=== PATIENT | male | born 1935 | race African-American/Black ===

== ENCOUNTER 2018-09-29 21:25 | Inpatient (IN) | payer MEDICARE, BC ==
[~2018-09-29] VITALS: Ht 182.9 cm; Wt 83.9 kg
[~2018-09-29 21:25] MED LIST: FEBU40TA PO; GABA-290 PO; OLME1TAB44 PO; SIMV40TA5 PO
[2018-09-30] VITALS: BP 128/66
[2018-09-30 02:51] LABS: BASOPHILS % 0.5 % (0.0-2.0); EOSINOPHILS % 0.9 % (0.0-5.0); HEMATOCRIT. 37.4 % (42.0-52.0); HEMOGLOBIN. 12.4 g/dL (14.0-18.0); LYMPHOCYTES % 9.7 % (20.0-50.0); MEAN CORPUSCULAR VOLUME 93.9 fL (80.0-94.0); NEUTROPHILS % 81.9 % (40.0-76.0); PLATELET 191 x1000/uL (130-400); RED BLOOD CELL COUNT 3.98 mill/uL (4.7-6.1)
[2018-09-30 02:53] LABS: CHLORIDE 107 mEq/L (98-107)
[2018-09-30 02:56] LABS: INR 1.1; PARTIAL THROMBOPLASTIN TIME 30.6 sec (23.4-31.0)
[2018-09-30 04:17] LABS: CLARITY URINE CLEAR (CLEAR); COLOR URINE YELLOW (YELLOW); KETONES URINE NEGATIVE (NEGATIVE); LEUKOCYTE ESTERASE URINE 2+ (NEGATIVE); NITRITE URINE NEGATIVE (NEGATIVE); OCCULT BLOOD URINE 2+ (NEGATIVE); PH URINE 5.5 (4.5-8.0); PROTEIN URINE NEGATIVE (NEGATIVE); SPECIFIC GRAVITY URINE 1.014 (1.005-1.030); UROBILINOGEN URINE 0.2 E.U./dL (0.2-1.0)
[2018-09-30 08:00] VITALS: BP 130/63
[2018-09-30] MEDS ORDERED: MORPHINE SULFATE 4 MG/ML CPJ (NOT FOR IM USE) IV PRN (09:00)
[2018-09-30] MEDS ORDERED: MORPHINE SULFATE 4 MG/ML CPJ (NOT FOR IM USE) IV NR (09:00)
[2018-09-30] MEDS ORDERED: DEXT 5% IV SCH (10:30)
[2018-09-30] MEDS ORDERED: WATER IV SCH (10:30)
[2018-09-30] MEDS ORDERED: POTASSIUM CHLORIDE IV SCH (10:30)
[2018-09-30] MEDS ORDERED: MAGNESIUM HYDROXIDE 400MG/5ML 30ML UDC PO PRN ×2 (10:45→20:30)
[2018-09-30] MEDS ORDERED: ZOLPIDEM TARTRATE 5MG TABLET PO PRN (10:45)
[2018-09-30] MEDS ORDERED: ACETAMINOPHEN 325MG TABLET PO PRN ×2 (10:45→20:30)
[2018-09-30] MEDS ORDERED: POTASSIUM CHLORIDE 20MEQ TABLET SR PO NR (11:00)
[2018-09-30 11:32] VITALS: BP 114/60
[2018-09-30] MEDS ORDERED: DEXT 5%/0.45% NACL KCL 20MEQ/L 1,000 ML IV SCH (12:00)
[2018-09-30 16:00] VITALS: BP 154/77
[2018-09-30] MEDS ORDERED: BUPIVACAINE/EPINEPH/PF 0.25%/0.0005 10ML ONE ×2 (16:33→17:10)
[2018-09-30] MEDS ORDERED: VANCOMYCIN HCL 500 MG/VIAL ONE (16:34)
[2018-09-30] MEDS ORDERED: BACITRACIN 15GM TUBE TOP ONE (16:34)
[2018-09-30] MEDS ORDERED: BACITRACIN 50,000 UNITS/VIAL ONE (16:35)
[2018-09-30] MEDS ORDERED: NORMAL SALINE 0.9% 10 ML SYR ONE (16:35)
[2018-09-30] MEDS ORDERED: FENTANYL CITRATE/PF 50MCG/ML 2ML VIAL ONE (18:08)
[2018-09-30] MEDS ORDERED: PROPOFOL 200MG/20ML VIAL IV ONE (18:08)
[2018-09-30] MEDS ORDERED: MIDAZOLAM HCL 2 MG/2 ML VIAL ONE (18:09)
[2018-09-30] MEDS ORDERED: LABETALOL 5MG/ML SYR 20 MG/4 ML SYRINGE IV PRN (18:45)
[2018-09-30] MEDS ORDERED: HYDROMORPHONE HCL/PF 2MG/ML CPJ IV PRN (18:45)
[2018-09-30] MEDS ORDERED: ONDANSETRON HCL 4MG/2ML INJ IV PRN ×2 (18:45→20:30)
[2018-09-30] MEDS ORDERED: MEPERIDINE HCL/PF 25MG/ML CPJ IV PRN (18:45)
[2018-09-30] MEDS ORDERED: ONDANSETRON HCL 4MG/2ML INJ ONE (18:48)
[2018-09-30] MEDS ORDERED: DEXAMETHASONE 4MG/ML 1ML VIAL ONE (18:48)
[2018-09-30] MEDS ORDERED: MORPHINE SULFATE/PF 1MG/ML 10ML AMP ONE (18:53)
[2018-09-30] MEDS ORDERED: HYDROMORPHONE HCL/PF 2MG/ML (OR) ONE (19:12)
[2018-09-30] MEDS ORDERED: ASPI-1160 PO (19:47)
[2018-09-30] MEDS ORDERED: ALPH100C PO (19:47)
[2018-09-30] MEDS ORDERED: HYDROCODONE/ACETAMINOPHEN 10/325MG TABLET PO PRN ×2 (20:30)
[2018-09-30] MEDS ORDERED: HYDROMORPHONE PCA 10MG/50ML IV PRN (21:00)
[2018-09-30] MEDS ORDERED: NALOXONE INJ IV PRN (21:00)
[2018-09-30] MEDS ORDERED: ONDANSETRON INJ IV PRN (21:00)
[2018-10-01] VITALS (7 sets, daily range): BP systolic 105–138; BP diastolic 51–75
[2018-10-01] MEDS: CEFAZOLIN 2,000 MG in DEXT 5% WATER 100 ML IV SCH ×2 (02:25→09:17)
[2018-10-01 06:45] LABS: HEMOGLOBIN. 12.1 g/dL (14.0-18.0); MEAN CORPUSCULAR HEMOGLOBIN 31.7 pg (28.0-32.0); MEAN CORPUSCULAR VOLUME 94.1 fL (80.0-94.0); PLATELET 159 x1000/uL (130-400); RED BLOOD CELL COUNT 3.82 mill/uL (4.7-6.1)
[2018-10-01] MEDS: AMLODIPINE 5MG TABLET PO SCH (09:00)
[2018-10-01] MEDS ORDERED: WATER IV SCH ×2 (09:00→11:00)
[2018-10-01] MEDS ORDERED: KCL IV SCH ×2 (09:00→11:00)
[2018-10-01] MEDS ORDERED: DEXT 5% IV SCH ×2 (09:00→11:00)
[2018-10-01] MEDS: DOCUSATE SODIUM 100MG CAPSULE PO SCH (09:15)
[2018-10-01] MEDS: ENOXAPARIN 40MG/0.4ML SYR SUBCUT SCH (09:17)
[2018-10-01] MEDS ORDERED: MAGNESIUM HYDROXIDE 400MG/5ML 30ML UDC PO PRN (10:00)
[2018-10-01 16:42] LABS: PLATELET ESTIMATE NORMAL
[2018-10-02 04:00] VITALS: BP 139/74
[2018-10-02 08:00] VITALS: BP 139/76
[2018-10-02] MEDS: ENOXAPARIN 40MG/0.4ML SYR SUBCUT SCH (09:08)
[2018-10-02] MEDS: DOCUSATE SODIUM 100MG CAPSULE PO SCH (09:08)
[2018-10-02] MEDS: AMLODIPINE 5MG TABLET PO SCH (09:08)
[2018-10-02 12:00] VITALS: BP 116/64
[2018-10-02 15:46] VITALS: BP 120/58
[2018-10-02 17:28] VITALS: BP 120/58
== END 2018-10-02 17:57 | DRG 482 ==
LOC: ER 21:25 → 6EST 09-30 01:41 → ENRESERV 09-30 04:36
PROVIDERS: ADMIT Specialist; ATTEND Specialist
PROC: 0QH706Z Insertion of Intramedullary Internal Fixation Device into Left Upper Femur, Open Approach (ICD-10-PCS; principal; 2018-09-30)
DX: S72.142A Displaced intertrochanteric fracture of left femur, initial encounter for closed fracture (principal); I10 Essential (primary) hypertension; E78.5 Hyperlipidemia, unspecified; G62.0 Drug-induced polyneuropathy; R73.02 Impaired glucose tolerance (oral); E87.6 Hypokalemia; T45.1X5A Adverse effect of antineoplastic and immunosuppressive drugs, initial encounter; W01.0XXA Fall on same level from slipping, tripping and stumbling without subsequent striking against object, initial encounter; Y93.89 Activity, other specified; Y99.8 Other external cause status; Y92.89 Other specified places as the place of occurrence of the external cause; Z85.46 Personal history of malignant neoplasm of prostate; Z92.3 Personal history of irradiation; Z92.21 Personal history of antineoplastic chemotherapy; Z86.73 Personal history of transient ischemic attack (TIA), and cerebral infarction without residual deficits; Z85.038 Personal history of other malignant neoplasm of large intestine; Z90.49 Acquired absence of other specified parts of digestive tract; Z93.3 Colostomy status; Z87.891 Personal history of nicotine dependence; Z79.899 Other long term (current) drug therapy
CPT/HCPCS: 36415; 71045; 72192; 73503; 76000; 80048; 83036; 84132; 84484; 93005; 96374; 96375; 97116; 97162; 97166; 97530; 99285; C1713; C1893; J0171; J0690; J1100; J1170; J1650; J2250; J2270; J2274; J2405; J2704; J3010; J3370; J3480; J3490; J7060; A4315

== ENCOUNTER 2018-10-02 17:15 | Inpatient (IN) | payer MEDICARE, BC ==
[~2018-10-02] VITALS: Ht 365.8 cm; Wt 83.9 kg
[~2018-10-02 17:15] MED LIST changes: +ALPH100C PO; +ASPI-1160 PO
[2018-10-02 20:00] VITALS: BP 140/77
[2018-10-02] MEDS ORDERED: ACETAMINOPHEN 325MG TABLET PO PRN (20:30)
[2018-10-02] MEDS ORDERED: HYDROCODONE/ACETAMINOPHEN 10/325MG TABLET PO PRN ×2 (20:30)
[2018-10-02] MEDS ORDERED: MAGNESIUM HYDROXIDE 400MG/5ML 30ML UDC PO PRN (20:30)
[2018-10-02] MEDS ORDERED: ZOLPIDEM TARTRATE 5MG TABLET PO PRN (20:30)
[2018-10-02] MEDS ORDERED: ONDANSETRON HCL 4MG/2ML INJ IV PRN (20:30)
[2018-10-02 21:00] VITALS: BP 140/77
[2018-10-03 08:00] VITALS: BP 130/60
[2018-10-03] MEDS: DOCUSATE SODIUM 100MG CAPSULE PO SCH (08:52)
[2018-10-03] MEDS: AMLODIPINE 5MG TABLET PO SCH (08:52)
[2018-10-03] MEDS: ENOXAPARIN 40MG/0.4ML SYR SUBCUT SCH (08:54)
[2018-10-03 20:00] VITALS: BP 148/82
[2018-10-04 08:01] VITALS: BP 133/70
[2018-10-04] MEDS: DOCUSATE SODIUM 100MG CAPSULE PO SCH (10:25)
[2018-10-04] MEDS: AMLODIPINE 5MG TABLET PO SCH (10:25)
[2018-10-04] MEDS: ENOXAPARIN 40MG/0.4ML SYR SUBCUT SCH (10:27)
[2018-10-04 20:00] VITALS: BP 132/68
[2018-10-05 08:00] VITALS: BP 132/56
[2018-10-05] MEDS: AMLODIPINE 5MG TABLET PO SCH (09:19)
[2018-10-05] MEDS: DOCUSATE SODIUM 100MG CAPSULE PO SCH (09:19)
[2018-10-05] MEDS: ENOXAPARIN 40MG/0.4ML SYR SUBCUT SCH (09:21)
[2018-10-05 20:00] VITALS: BP 137/62
[2018-10-06 07:11] LABS: HEMATOCRIT 37.2 % (42.0-52.0); HEMOGLOBIN 12.6 g/dL (14.0-18.0); MEAN CORPUSCULAR HEMOGLOBIN 31.4 pg (28.0-32.0); MEAN CORPUSCULAR VOLUME 92.5 fL (80.0-94.0); PLATELET 231 x1000/uL (130-400); RED BLOOD CELL COUNT 4.03 mill/uL (4.7-6.1)
[2018-10-06 08:23] VITALS: BP 151/76
[2018-10-06] MEDS: DOCUSATE SODIUM 100MG CAPSULE PO SCH (08:24)
[2018-10-06] MEDS: ENOXAPARIN 40MG/0.4ML SYR SUBCUT SCH (08:24)
[2018-10-06] MEDS: AMLODIPINE 5MG TABLET PO SCH (08:24)
[2018-10-06 20:00] VITALS: BP 134/65
[2018-10-07 08:08] VITALS: BP 121/63
[2018-10-07] MEDS: AMLODIPINE 5MG TABLET PO SCH (09:00)
[2018-10-07] MEDS: DOCUSATE SODIUM 100MG CAPSULE PO SCH (09:33)
[2018-10-07] MEDS: ENOXAPARIN 40MG/0.4ML SYR SUBCUT SCH (09:34)
[2018-10-07] MEDS ORDERED: ZOLPIDEM TARTRATE 5MG TABLET PO PRN (17:30)
[2018-10-07] MEDS ORDERED: HYDROCODONE/ACETAMINOPHEN 10/325MG TABLET PO PRN (17:30)
[2018-10-07 20:00] VITALS: BP 121/55
[2018-10-08 08:00] VITALS: BP 115/67
[2018-10-08 08:13] LABS: BASOPHILS % 1.1 % (0.0-2.0); EOSINOPHILS % 4.6 % (0.0-5.0); HEMATOCRIT. 36.5 % (42.0-52.0); HEMOGLOBIN. 12.4 g/dL (14.0-18.0); LYMPHOCYTES % 21.5 % (20.0-50.0); MEAN CORPUSCULAR HEMOGLOBIN 31.5 pg (28.0-32.0); MEAN CORPUSCULAR VOLUME 92.3 fL (80.0-94.0); MEAN PLATELET VOLUME 8.9 fl (7.4-10.4); MONOCYTES % 11.5 % (2.0-8.0); NEUTROPHILS % 61.3 % (40.0-76.0); PLATELET 253 x1000/uL (130-400); RED BLOOD CELL COUNT 3.95 mill/uL (4.7-6.1); RED CELL DISTRIBUTION WIDTH 13.7 % (11.6-14.6)
[2018-10-08 08:45] LABS: CHLORIDE 109 mEq/L (98-107)
[2018-10-08 08:52] LABS: PHOSPHORUS 2.3 mg/dL (2.5-4.9)
[2018-10-08] MEDS: AMLODIPINE 5MG TABLET PO SCH (09:07)
[2018-10-08] MEDS: DOCUSATE SODIUM 100MG CAPSULE PO SCH (09:07)
[2018-10-08] MEDS: ENOXAPARIN 40MG/0.4ML SYR SUBCUT SCH (09:08)
[2018-10-08 10:40] LABS: FOLIC ACID (FOLATE) SERUM 14.3 ng/mL (>5.38)
[2018-10-08] MEDS: CYANOCOBALAMIN 1000MCG/ML VIAL IM SCH (17:58)
[2018-10-08 20:00] VITALS: BP 113/52
[2018-10-09 08:35] VITALS: BP 135/61
[2018-10-09] MEDS: DOCUSATE SODIUM 100MG CAPSULE PO SCH (09:54)
[2018-10-09] MEDS: AMLODIPINE 5MG TABLET PO SCH (09:54)
[2018-10-09] MEDS: CYANOCOBALAMIN 1000MCG/ML VIAL IM SCH (09:55)
[2018-10-09] MEDS: ENOXAPARIN 40MG/0.4ML SYR SUBCUT SCH (09:55)
[2018-10-09 20:00] VITALS: BP 118/58
[2018-10-10 07:21] LABS: BASOPHILS % 1.5 % (0.0-2.0); EOSINOPHILS % 4.1 % (0.0-5.0); HEMATOCRIT. 36.2 % (42.0-52.0); HEMOGLOBIN. 12.3 g/dL (14.0-18.0); LYMPHOCYTES % 23.7 % (20.0-50.0); MEAN CORPUSCULAR HEMOGLOBIN 31.7 pg (28.0-32.0); MEAN CORPUSCULAR VOLUME 93.3 fL (80.0-94.0); MEAN PLATELET VOLUME 9.4 fl (7.4-10.4); MONOCYTES % 11.1 % (2.0-8.0); NEUTROPHILS % 59.6 % (40.0-76.0); PLATELET 258 x1000/uL (130-400); RED BLOOD CELL COUNT 3.88 mill/uL (4.7-6.1); RED CELL DISTRIBUTION WIDTH 14.2 % (11.6-14.6)
[2018-10-10 07:30] VITALS: BP 114/61
[2018-10-10 07:42] LABS: CHLORIDE 112 mEq/L (98-107)
[2018-10-10] MEDS: ENOXAPARIN 40MG/0.4ML SYR SUBCUT SCH (09:06)
[2018-10-10] MEDS: AMLODIPINE 5MG TABLET PO SCH (09:06)
[2018-10-10] MEDS: DOCUSATE SODIUM 100MG CAPSULE PO SCH (09:06)
[2018-10-10] MEDS: CYANOCOBALAMIN 1000MCG/ML VIAL IM SCH (09:06)
[2018-10-10 20:00] VITALS: BP 105/59
[2018-10-11 08:00] VITALS: BP 152/62
[2018-10-11] MEDS: DOCUSATE SODIUM 100MG CAPSULE PO SCH (09:00)
[2018-10-11] MEDS: AMLODIPINE 5MG TABLET PO SCH (09:00)
[2018-10-11] MEDS: ENOXAPARIN 40MG/0.4ML SYR SUBCUT SCH (09:52)
[2018-10-11] MEDS: CYANOCOBALAMIN 1000MCG/ML VIAL IM SCH (09:52)
[2018-10-11 20:00] VITALS: BP 111/63
[2018-10-12 08:00] VITALS: BP_SYST 105; BP_SYST 121; BP_DIAS 59; BP_DIAS 79
[2018-10-12] MEDS: DOCUSATE SODIUM 100MG CAPSULE PO SCH (09:00)
[2018-10-12] MEDS: AMLODIPINE 5MG TABLET PO SCH (09:00)
[2018-10-12] MEDS: CYANOCOBALAMIN 1000MCG/ML VIAL IM SCH (09:27)
[2018-10-12] MEDS: ENOXAPARIN 40MG/0.4ML SYR SUBCUT SCH (09:28)
[2018-10-12 10:58] VITALS: BP 124/52
[2018-10-13 15:09] LABS: 25-HYDROXY VITAMIN D3 12 ng/mL (.)
== END 2018-10-12 14:00 | disposition home health service (06) | DRG 535 ==
PROVIDERS: ADMIT Psychiatry & Neurology Neurology; ATTEND Specialist
DX: S72.142A Displaced intertrochanteric fracture of left femur, initial encounter for closed fracture (principal); I63.9 Cerebral infarction, unspecified; I10 Essential (primary) hypertension; T45.1X5A Adverse effect of antineoplastic and immunosuppressive drugs, initial encounter; F06.31 Mood disorder due to known physiological condition with depressive features; E78.5 Hyperlipidemia, unspecified; C61 Malignant neoplasm of prostate; Z90.49 Acquired absence of other specified parts of digestive tract; G62.0 Drug-induced polyneuropathy; I87.2 Venous insufficiency (chronic) (peripheral); W18.30XA Fall on same level, unspecified, initial encounter; M19.90 Unspecified osteoarthritis, unspecified site; Z85.46 Personal history of malignant neoplasm of prostate; Z86.73 Personal history of transient ischemic attack (TIA), and cerebral infarction without residual deficits; Z92.3 Personal history of irradiation; Z93.3 Colostomy status; Z85.038 Personal history of other malignant neoplasm of large intestine; Y92.89 Other specified places as the place of occurrence of the external cause
CPT/HCPCS: 36415; 82306; 82607; 82746; 83735; 84100; 84443; 85027; 93970; 97110; 97112; 97116; 97162; 97166; 97530; 97535; A6261; J1650; J3420

== ENCOUNTER 2021-02-18 08:16 | Emergency (ER) | payer MEDICARE, BC ==
[~2021-02-18] VITALS: Ht 180.3 cm; Wt 91.0 kg
[~2021-02-18 08:16] MED LIST changes: -OLME1TAB44 PO; +OLME1TAB92 PO; +SIMV-46 PO; -SIMV40TA5 PO
[2021-02-18] MEDS ORDERED: MORPHINE SULFATE 10 MG/ML CPJ IM ONE (08:45)
[2021-02-18 10:59] LABS: CHLORIDE 112 mEq/L (98-107)
[2021-02-18 11:02] LABS: INR 1.1; PROTHROMBIN TIME 11.5 sec (9.6-11.0)
[2021-02-18 11:07] LABS: BASOPHILS % 0.9 % (0.0-2.0); HEMATOCRIT. 36.4 % (42.0-52.0); HEMOGLOBIN. 12.7 g/dL (14.0-18.0); LYMPHOCYTES % 23.6 % (20.0-50.0); MEAN CORPUSCULAR HEMOGLOBIN 32.3 pg (28.0-32.0); MEAN CORPUSCULAR VOLUME 92.6 fL (80.0-94.0); MEAN PLATELET VOLUME 8.7 fl (7.4-10.4); MONOCYTES % 8.8 % (2.0-8.0); NEUTROPHILS % 62.7 % (40.0-76.0); PLATELET 195 x1000/uL (130-400); RED BLOOD CELL COUNT 3.93 mill/uL (4.7-6.1); RED CELL DISTRIBUTION WIDTH 14.9 % (11.6-14.6)
[2021-02-18] MEDS ORDERED: CYCL10TA7 MT (12:22)
[2021-02-18 12:54] VITALS: BP 166/68
== END 2021-02-18 13:12 | disposition home or self-care (01) ==
LOC: ER 08:32
DX: M54.5 Low back pain (principal); G89.29 Other chronic pain; I10 Essential (primary) hypertension; Z86.73 Personal history of transient ischemic attack (TIA), and cerebral infarction without residual deficits; Z85.9 Personal history of malignant neoplasm, unspecified; Z87.891 Personal history of nicotine dependence; Z93.3 Colostomy status
CPT/HCPCS: 36415; 72131; 72148; 80053; 85025; 85610; 96372; 99284; J2270